=== PATIENT | male | born 1990 | race Caucasian/White ===

== ENCOUNTER 2018-04-14 10:30 | Emergency (ER) | payer BC | END 2018-04-14 11:08 | disposition home or self-care (01) | LOC: BURERS 10:30 | DX: S39.011A Strain of muscle, fascia and tendon of abdomen, initial encounter (principal); F17.210 Nicotine dependence, cigarettes, uncomplicated; X50.1XXA Overexertion from prolonged static or awkward postures, initial encounter | CPT/HCPCS: 99283 ==

== ENCOUNTER 2020-12-13 19:20 | Emergency (ER) | payer BC ==
[2020-12-13] MEDS ORDERED: Ibuprofen 800 MG TAB ONE (19:43)
[2020-12-13] MEDS ORDERED: HYDROcodone/Acetaminophen 10/325 mg Tablet ONE (19:43)
== END 2020-12-13 20:14 | disposition home or self-care (01) ==
LOC: BURERS 19:20
DX: S16.1XXA Strain of muscle, fascia and tendon at neck level, initial encounter (principal); J43.9 Emphysema, unspecified; F17.210 Nicotine dependence, cigarettes, uncomplicated; X50.1XXA Overexertion from prolonged static or awkward postures, initial encounter
CPT/HCPCS: 72125